=== PATIENT | female | born 1975 | race Caucasian/White ===

== ENCOUNTER → 2018-08-07 | Outpatient (CLI) | payer OTHER ==
[2018-08-07 07:15] LABS: HEMATOCRIT 40.2 % (37.0-47.0); HEMOGLOBIN 13.4 gm/dL (12.0-15.0); MCH 30.1 pg (26.0-34.0); MCHC 33.4 g/dL (28.0-37.0); MCV 90.3 fL (80.0-100.0); RBC 4.46 mil/uL (4.20-5.00); RDW 13.4 % (10.5-14.5); WBC 9.2 thou/uL (4.0-11.0)
[2018-08-07 07:31] LABS: CALCIUM 9.2 mg/dL (8.5-10.1); CREATININE 0.9 mg/dL (0.6-1.0); POTASSIUM 4.7 mmol/L (3.5-5.1); TOTAL BILIRUBIN 0.3 mg/dL (<0.1-1.0)
== END ==
LOC: CAT 07-26 09:44
PROVIDERS: Internal Medicine Cardiovascular Disease
DX: I48.91 Unspecified atrial fibrillation (principal); M47.814 Spondylosis without myelopathy or radiculopathy, thoracic region; Z90.49 Acquired absence of other specified parts of digestive tract

== ENCOUNTER 2018-08-17 06:18 | Observation (INO) | payer OTHER ==
[~2018-08-17] VITALS: Ht 170.2 cm; Wt 74.8 kg
--- NOTE | ~2018-08-17 | P ---
[facility] [place] [address] PROCEDURE REPORT Name: JOHNNA GARCIA Room #: 205-P [facility]..#: [id number] Admission: 08/17/18 ������������������ Attend Phys: Krishan Patterson MD Discharge: ������������������ Date of : 73 Report #: [id number] THIS REPORT FOR: //name// CC: Krishan Bangnton DATE OF SERVICE: 08/17/2018 PREOPERATIVE DIAGNOSIS: Paroxysmal atrial fibrillation. POSTOPERATIVE DIAGNOSIS: Paroxysmal atrial fibrillation. PROCEDURES PERFORMED: 1. AFib ablation, CPT code 08669. 2. 3D mapping, CPT code 08681. 3. Intracardiac echocardiography, CPT code 96432. 4. Program stimulation and pacing after IV, CPT code 15171. HISTORY OF PRESENT ILLNESS: The patient is a 42-year-old female with a history of new onset paroxysmal atrial fibrillation who has had episodes despite antiarrhythmic drug therapy. She is here for AFib ablation. ANESTHESIA: The patient underwent MAC anesthesia with no anesthesia related complications. DESCRIPTION OF PROCEDURE: The patient underwent informed consent. We discussed the details of the procedure including the risks, which include but not limited to bleeding, vascular damage, cardiac perforation, stroke, NH as well as damage to the la posta conduction system requiring permanent pacemaker. She understood these risks and was willing to proceed. The patient was brought to the EP Laboratory in a fasting and nonsedated state and prepped and draped in a sterile fashion. I injected lidocaine at the right groin region, obtained access to the right femoral vein x 3, placing an 8, 9 and 7-Sinhala short sheath using the modified Seldinger technique. Next, a decapolar catheter was placed in the coronary sinus. Her CS was quite vertical in nature. Using intracardiac ultrasound, I created a 3D geometry of the left atrium with specific emphasis of the left atrial appendage, the 2 left-sided veins and the 2 right-sided veins. She had a nice thin interatrial septum. The patient was systemically heparinized and a transseptal was performed using an SL1 sheath and Arcadia needle. This was straightforward. I then exchanged the SL1 sheath for the cryo sheath and we started performing the ablation. At baseline, she was in sinus rhythm with sinus cycle length of 750 milliseconds, MD interval 105 milliseconds, QRS duration 85 milliseconds, QT interval 400 milliseconds. Next, I started by isolating the left superior pulmonary vein, which had a very superior position. I performed a 4-minute freeze, followed by a 3-minute [facility] [address] [place] [address] PROCEDURE REPORT Name: JOHNNA GARCIA Room #: [facility]#: [id number] Admission: 08/17/18 ������������������ Attend Phys: Krishan Patterson MD Discharge: ������������������ Date of : 73 Report #: [id number] freeze. The vein isolated during the first freeze within 55 seconds. Of note, there were very large far field left atrial appendage signals noted, but there was clear entrance and exit block in this vessel. Next, I turned my attention to the left inferior pulmonary vein. I performed two 4-minute freezes in this vein. The vein isolated within the first freeze within 57 seconds. There was evidence of dissociated PV potentials noted. I then turned my attention to the right-sided veins. I isolated the right inferior pulmonary vein first. I performed a 4-minute freeze, which did not result in isolation. I then performed a second freeze of 270 seconds. The vein isolated within 90 seconds. There was evidence of dissociated PV potentials in this vessel. I then turned my attention to the right superior pulmonary vein. I performed an initial freeze of 95 seconds, but came off because of poor temps. I performed a second freeze and that was 180 seconds and the vessel isolated within 24 seconds. This vein isolated nicely. When I rechecked this vein, there were some small potentials, which I think were likely far field atrial signals. I did perform a third freeze that was of 110 seconds durations. Post-ablation all veins were reinterrogated and there was entrance and exit block in all 4 veins. A voltage map was created, which clearly showed that we had performed a wide circumferential ablation of the left atrium using the cryoablation balloon. Post-ablation EP study was performed. Atrial burst pacing was performed and AV block was noted at 320 milliseconds. Atrial ERP was noted at 280 milliseconds at a 500-millisecond basic drive cycle length. Isoproterenol was initiated at 1 mcg per minute. AV block was noted at 260 milliseconds. Atrial ERP was noted at 210 milliseconds at a 400-millisecond basic drive cycle length and aggressive atrial burst pacing was performed down to 250 milliseconds and I could not induce any atrial fibrillation or supraventricular tachycardia. Of note, while we were isolating the left superior pulmonary vein, the patient started having some bursts of atrial tachycardia and then went into an atrial flutter that lasted about 3-5 minutes and then terminated on its own. This was not seen again after all four veins were isolated. Post-ablation, the patient was in sinus rhythm with a sinus cycle length of 600 milliseconds, MD interval 150 milliseconds, QRS duration 80 milliseconds, QT interval 415 milliseconds. As such, using intracardiac ultrasound, I verified there was no pericardial effusion. Once the patient received protamine and ACT was within acceptable range, catheters and sheaths were pulled and hemostasis was obtained. The patient awoke neurologically and hemodynamically intact. No complications and no significant bleeding. CONCLUSIONS: [facility] [address] [place] [address] PROCEDURE REPORT Name: JOHNNA GARCIA Room #: 205-P [facility] MAnand#: [id number] Admission: 08/17/18 ������������������ Attend Phys: Krishan Patterson MD Discharge: ������������������ Date of : 73 Report #: [id number] 1. Successful AFib ablation with isolation of the pulmonary veins. 2. Normal EP study with no evidence of inducible SVT or atrial fibrillation. ��������������������������������������������� ���������������������������������������� By: ��������������������������������������������� [id number] Krishan Patterson MD /nt
--- NOTE | ~2018-08-17 | D ---
[facility] [place] [address] DISCHARGE SUMMARY Name: JOHNNA GARCIA Room #: 205-P [facility] M..#: [id number] Admission: 08/17/18 ������������������ Attend Phys: Krishan Patterson MD Discharge: 08/18/18 ������������������ Date of : 73 Report #: [id number] THIS REPORT FOR: //name// CC: Krishan Ramirez Clark DISCHARGE DIAGNOSES: 1. Atrial fibrillation. 2. Atrial flutter. 3. Diabetes mellitus. PROCEDURES PERFORMED: AFib ablation. HISTORY OF PRESENT ILLNESS: The patient is a 42-year-old female with a history of AFib, Aflutter and diabetes, with worsening atrial fibrillation despite antiarrhythmic drugs, who is here for an ablation. She underwent successful AFib ablation. The procedure was straightforward, with no issues and no procedure-related complications. HOSPITAL COURSE: The patient was monitored in the CCU overnight. On the day of discharge, she was doing well. She was having some mild inspiratory chest pain, which is not unusual after the ablation. She denied any shortness of breath, PND, orthopnea or groin discomfort. PHYSICAL EXAMINATION: GENERAL: She is in no acute distress. HEENT: Oropharynx is clear. NECK: Supple, with no thyromegaly. HEART: Regular rate and rhythm, with no murmurs, rubs or gallops. LUNGS: Clear to auscultation bilaterally. ABDOMEN: Soft, nontender. EXTREMITIES: No clubbing, cyanosis or edema. Her right groin showed no significant bruising or hematoma. SUMMARY: Telemetry, she remained in sinus rhythm throughout the night. As such, she was deemed stable for discharge home. Discharge instructions were reviewed. She will continue with her Pradaxa, flecainide and metoprolol therapy. She will see my nurse practitioner in 2 weeks and see me back in 3 months. ��������������������������������������������� ���������������������������������������� By: ��������������������������������������������� 0837 [id number] Krishan Patterson MD /nt
[2018-08-17 07:01] VITALS: BP 119/87
[2018-08-17] MEDS ORDERED: FLECAINIDE ACE100 MG PO (07:32)
[2018-08-17] MEDS ORDERED: TOPROL XL100 MG PO (07:33)
[2018-08-17] MEDS ORDERED: JARDIANCE25 MG PO (07:35)
[2018-08-17] MEDS ORDERED: PRADAXA150 MG PO (07:37)
[2018-08-17 07:48] LABS: ABSOLUTE NEUTROPHILS 5.1 thou/uL (1.4-8.2); BASOPHILS 0.8 % (0.0-2.0); HEMATOCRIT 38.8 % (37.0-47.0); LYMPHOCYTES 22.8 % (24.0-44.0); MCH 30.3 pg (26.0-34.0); MCHC 33.4 g/dL (28.0-37.0); MCV 90.8 fL (80.0-100.0); MONOCYTES 5.8 % (1.0-8.0); PLATELET COUNT 193 thou/uL (150-400); POLYS 69.6 % (36.0-66.0); RBC 4.27 mil/uL (4.20-5.00); RDW 13.3 % (10.5-14.5); WBC 7.3 thou/uL (4.0-11.0)
[2018-08-17 07:57] LABS: CREATININE 0.9 mg/dL (0.6-1.0); POTASSIUM 4.3 mmol/L (3.5-5.1)
[2018-08-17 08:02] LABS: ALBUMIN 3.8 g/dL (3.4-5.0); TOTAL BILIRUBIN 0.5 mg/dL (<0.1-1.0); TOTAL PROTEIN 6.9 g/dL (6.4-8.2)
[2018-08-17 08:03] LABS: PROTIME 10.2 Seconds (9.3-11.4)
--- NOTE | 2018-08-17 16:43 | NUR ---
PT TO UNIT POST AQBLATION - GROIN SITE STABLE, VSS, SHEILA DIET AND FLUIDS. NO CO'S OF PAIN OR NASUEA. PT SLEEPY WHEN KEVAN ARRIVED WITH CO'S OF THROAT BEING SORE DUE TO INTUBATION - STATES BETTER NOW - PT AWAKE WATCHING TV. AT THE BEDSIDE - NO CO'S AT THE PRESENT TIME.
--- NOTE | 2018-08-17 18:14 | NUR ---
BEDREST OVER - PATIENT SAT UP IN BED AND ROLLED OVER - GROIN STABLE. NO CO'S AT THE PRESENT TIME.
[2018-08-17 20:33] VITALS: BP 114/75
[2018-08-17 20:34] VITALS: BP 108/70
[2018-08-17 20:35] VITALS: BP 104/69
--- NOTE | 2018-08-18 05:20 | NUR ---
ASSUMED PT CARE AT 1900. VSS. PT A&0X4. PT COMPLAINED OF HEADACHE. SAID SHE HAD BEEN HAVING THEM INTERMITENTLY POST COMPLETION OF HER ABLATION. TYLENOL ADMNISTERED, PT SLEPT WELL THROUGH THE NIGHT, R GROIN SITE LOOKS CDI, VERY MILD BRUSING NOTED AROUND THE DISTAL BOADER OF THE APPLIED TAGEDEM TAPE, REMAINS SOFT & NON TENDER. NO COMPLAINTES OF PAIN REPORTED BY THE PT. DOMINIK WAS TAKEN OUT AT 2133, 9ML OF STERILE SALINE WAS IN THE BULB. PT SLEPT WELL THE WHOLE NIGHT. PT IS STABLE, SHOULD D/C THIS AM.
[2018-08-18 05:21] VITALS: BP 113/73
[2018-08-18 07:25] VITALS: BP 105/69
[2018-08-18 09:34] VITALS: BP 113/73
--- NOTE | 2018-08-18 10:31 | NUR ---
AAOX4. AT BEDSIDE. DR. FRANKS HERE, DISCHARGING PATIENT, REMOVED RIGHT GROIN DRESSING. DISCHARGE INSTRUCTIONS GIVEN. FROM UNIT BY SARAH, ACCOMPANIED BY US, FCO.
== END 2018-08-18 10:44 | disposition home or self-care (01) ==
LOC: CATH 06:18 → 2N 10:29 → CATH 10:58 → 2N 08-18 10:44
PROVIDERS: ADMIT Internal Medicine Cardiovascular Disease
DX: I48.0 Paroxysmal atrial fibrillation (principal); I48.92 Unspecified atrial flutter; E11.9 Type 2 diabetes mellitus without complications
CPT/HCPCS: 62110; 62900; 65020; 65040; 70005

== ENCOUNTER → 2019-02-01 | Outpatient (CLI) | payer OTHER ==
[~2019-02-01] MED LIST: FLECAINIDE ACE100 MG PO; JARDIANCE25 MG PO; PRADAXA150 MG PO; TOPROL XL100 MG PO
--- NOTE | ~2019-02-01 | P ---
[facility] [place] [address] PROCEDURE REPORT Name: JOHNNA GARCIA Room #: [facility]#: [id number] Admission: 02/01/19 Attend Phys: Krishan Patterson MD Discharge: Date of : 73 Report #: [id number] THIS REPORT FOR: //name// CC: Krishan Ramirez Leblanc DATE OF SERVICE: 02/01/2019 PROCEDURE: Implantation of an implantable loop recorder. PREOPERATIVE DIAGNOSES: 1. Palpitations. 2. Atrial fibrillation. DESCRIPTION OF PROCEDURE: The patient underwent informed consent. We discussed the details of the procedure including the risks, which include but not limited to bleeding and infection. She understood these risks and is willing to proceed. The patient was prepped in standard fashion. I injected 30 mL of lidocaine at the incision site. Incision was made, the device was injected. A single layer of suture was delivered and surgical glue was placed at outer skin layer. A dressing was placed. There were no procedure related complications. The patient tolerated the procedure well. IMPLANTED DEVICE: [employer]irm model #3500, serial #[id number]. The device was programmed to detect AFib lasting more than 6 minutes. CONCLUSIONS: Successful implantation of an implantable loop recorder. By: 1610 [id number] Krishan Patterson MD /nt
== END | disposition home or self-care (01) ==
LOC: CATH 01-15 11:56
DX: I48.91 Unspecified atrial fibrillation (principal); R00.2 Palpitations; Z79.899 Other long term (current) drug therapy; Z79.01 Long term (current) use of anticoagulants; Z98.890 Other specified postprocedural states